=== PATIENT | female | born 1970 | race Caucasian/White ===

== ENCOUNTER 2022-02-16 19:30 | Emergency (ER) | payer BC, OTHER ==
[2022-02-16 19:52] VITALS: BP 131/76; PULSE 81; RESP 18; TEMP 97.9; BMI 33.8
[2022-02-16 20:22] LABS: HEMATOCRIT 36.2 % (32.4-45.2); HEMOGLOBIN 12.8 G/dL (10.7-15.3); MCH 28.6 pg (25.7-33.7); MCHC 35.3 g/dl (32.0-36.0); MEAN PLT VOLUME 8.9 fl (7.5-11.1); PLATELET COUNT 235.3 10^3/uL (134-434); RBC 4.47 10^6/uL (3.60-5.2); RDW 14.9 % (11.6-15.6); WHITE BLOOD COUNT 8.7 10^3/uL (4.0-10.8)
[2022-02-16] MEDS ORDERED: SODIUM CHLORIDE 1,000 ML IV ONE (20:29)
[2022-02-16 20:40] LABS: BILIRUBIN,TOTAL 0.5 mg/dl (0.2-1); CREATININE 0.9 mg/dl (0.55-1.3); TOT PROT 7.7 g/dl (6.4-8.2)
[2022-02-16] MEDS ORDERED: KETOROLAC TROMETHAMINE 30 MG/1 ML VIAL IVPUSH ONE (20:43)
[2022-02-16 20:49] LABS: PLATELET ESTIMATE ADEQUATE
[2022-02-16] MEDS ORDERED: KETOROLAC TROMETHAMINE 30 MG/1 ML VIAL ONE (20:53)
== END 2022-02-16 21:28 | disposition home or self-care (01) ==
LOC: FER 19:30
PROC: 3E0333Z Introduction of Anti-inflammatory into Peripheral Vein, Percutaneous Approach (ICD-10-PCS; principal; 2022-02-16)
PROC: 3E0337Z Introduction of Electrolytic and Water Balance Substance into Peripheral Vein, Percutaneous Approach (ICD-10-PCS; 2022-02-16)
DX: R10.9 Unspecified abdominal pain (principal)
CPT/HCPCS: 36415; 74176-TC; 80053; 81003; 81015; 81025; 85025; 96361; 96374; 99284-25

== ENCOUNTER 2022-03-12 19:53 | Emergency (ER) | payer OTHER ==
[2022-03-12 20:06] VITALS: BP 161/89; PULSE 68; RESP 18; TEMP 98; BMI 33.6
[2022-03-12] MEDS ORDERED: NITROFURANTOIN MACROCRYSTAL 50 MG CAPSULE (FP) ONE (20:10)
[2022-03-12] MEDS ORDERED: NITROFURANTOIN MACROCRYSTAL 50 MG CAPSULE (FP) PO SCH (20:15)
== END 2022-03-12 20:21 | disposition home or self-care (01) ==
LOC: FER 19:53
DX: R30.0 Dysuria (principal)
CPT/HCPCS: 81003; 81015; 87086; 87186; 99283-25